=== PATIENT | female | born 1980 ===

== ENCOUNTER 2018-12-14 08:50 | Outpatient (CLI) | payer OTHER | END 2018-12-14 08:51 | disposition home or self-care (01) | LOC: C.LAB 08:50 | DX: Z01.419 Encounter for gynecological examination (general) (routine) without abnormal findings (principal) ==

== ENCOUNTER 2018-12-21 08:41 | Outpatient (CLI) | payer OTHER | END 2018-12-21 08:42 | disposition home or self-care (01) | LOC: C.MAMMO 08:42 | DX: N63.0 Unspecified lump in unspecified breast (principal) ==